=== PATIENT | female | born 1960 | race Caucasian/White ===

== ENCOUNTER 2024-10-14 16:53 | Emergency (ER) | payer MEDICAID, MEDICARE | END 2024-10-14 19:47 | disposition home or self-care (01) | LOC: JP.ED 16:53 | DX: S06.0X0A Concussion without loss of consciousness, initial encounter (principal); I10 Essential (primary) hypertension; Z79.899 Other long term (current) drug therapy; W00.9XXA Unspecified fall due to ice and snow, initial encounter | CPT/HCPCS: 70450; 99283 ==